=== PATIENT | male | born 1990 | race Caucasian/White ===

== ENCOUNTER 2019-02-23 16:57 | Inpatient (IN) | payer MEDICAID ==
[2019-02-23] MEDS ORDERED: NS 1,000 ML IV ONE (18:08)
--- NOTE | 2019-02-23 18:16 | EDPHY ---
H & P Time Seen by Provider: 02/23/19 17:48 HPI/ROS: HPI Right lower extremity swelling and redness. 28-year-old immunocompetent male on foot. He is currently homeless. He presents to the emergency department with complaint of worsening pain, swelling and redness to his right leg onset noticed about 3 days ago. He also states that he has some redness and swelling to his left leg but not as severe. No history of trauma. He is not diabetic. ROS: Constitutional: No fever, no chills. No weakness. Eyes: No discharge. No changes in vision. ENT: No sore throat. No nasal congestion or rhinorrhea. Respiratory: No cough. No shortness of breath. Cardiac: No chest pain, no palpitations. Gastrointestinal: No abdominal pain, no vomiting, no diarrhea. Genitourinary: No hematuria. No dysuria or increased frequency with urination. Musculoskeletal: No back pain. No neck pain. No myalgias or arthralgias. Skin: As above. Neurological: No headache. No focal weakness or altered sensation. Past medical history: Facial fractures. Social history: Nonsmoker. Denies alcohol. He is homeless. Physical Exam: General Appearance: Alert, no distress. This patient is responding to questions appropriately and in full sentences. This patient appears well- hydrated and well-nourished. Eyes: Pupils equal and round no pallor or injection. No lid edema, erythema or injection. Respiratory: There are no retractions, lungs are clear to auscultation with good air movement bilaterally. Cardiovascular: Regular rate and rhythm. No murmur. Gastrointestinal: Abdomen is soft and nontender, no masses, bowel sounds normal. No focal tenderness at McBurney's point. No Patrick sign. Neurological: Motor sensory function is grossly intact. Cranial nerves are normal. Gait is normal. Skin: Warm and dry, no rashes. Musculoskeletal: Neck is supple and nontender. Examination of the right lower extremity significant for diffuse erythema with edema involving the foot, ankle and tracking up through the proximal leg. He has some scabbed over pock solis distributed over the lateral mid aspect of the right leg. This probably service the nidus for infection. Erythema is circumferential. Edema is circumferential. His muscle compartments are soft. The right lower extremity is neurovascularly intact. Examination of the left lower extremity involves some patchy erythema involving the ankle, the dorsum of the foot and the distal leg. There is some diffuse edema involving the foot , ankle and distal leg. Not as extensive as the right lower extremity. The left lower extremity is neurovascularly intact. Psychiatric: No agitation. No depression. Database: EKG: Imaging: Right lower extremity venous Doppler ultrasound: Negative for DVT or other pathology. Results were discussed with staff radiologist Dr. Gerard Gallo. Procedures: Emergency department course: Triage vital signs reviewed and are normal. Patient is afebrile. IV will be placed. Blood cultures to be obtained. He will be started on IV normal saline with 500 cc to be given over the next hour. After blood cultures have been drawn, the patient will be started on IV vancomycin in the emergency department for treatment of cellulitis. Plan for admission for day or 2 discussed with him. He endorses. 6:25 p.m., spoke with on-call hospitalist Dr. Morrell. Case discussed in detail with her. She accepts this patient for admission to the hospitalist service. The patient's remaining emergency department course under my care has been uneventful. The patient was admitted in stable condition to the hospitalist service. Differential Diagnosis: The differential diagnosis on this patient includes but is not limited to lower extremity cellulitis. DVT unlikely. This represents a partial list of diagnoses considered. These considerations are based on history, physical exam , past history, reassessment and diagnostic testing. Smoking Status: Light smoker Constitutional: Initial Vital Signs Temperature (C) 36.9 C 02/23/19 17:00 Heart Rate 92 02/23/19 17:00 Respiratory Rate 16 02/23/19 17:00 Blood Pressure 120/66 02/23/19 17:00 O2 Sat (%) 95 02/23/19 17:00 O2 Delivery Mode Room Air Allergies/Adverse Reactions: No Known Allergies Allergy (Verified 11/20/15 17:01) Home Medications: Medication Instructions Recorded NK [No Known Home Meds] 11/20/15 Medical Decision Making - Data Points Laboratory Results: Laboratory Results 02/23/19 18:14 02/23/19 18:14 02/23/19 02/23/19 18:14 18:14 WBC 7.17 10^3/uL 10^3/uL (3.80-9.50) RBC 4.18 10^6/uL L 10^6/uL (4.40-6.38) Hgb 12.7 g/dL L g/dL (13.7-17.5) Hct 37.3 % L % (40.0-51.0) MCV 89.2 fL fL (81.5-99.8) MCH 30.4 pg pg (27.9-34.1) MCHC 34.0 g/dL g/dL (32.4-36.7) RDW 12.5 % % (11.5-15.2) Plt Count 325 10^3/uL 10^3/uL (150-400) MPV 8.8 fL fL (8.7-11.7) Neut % (Auto) 70.2 % % (39.3-74.2) Lymph % (Auto) 16.0 % % (15.0-45.0) [place] % (Auto) 9.5 % % (4.5-13.0) Eos % (Auto) 2.5 % % (0.6-7.6) Baso % (Auto) 0.7 % % (0.3-1.7) Nucleat RBC Rel Count 0.0 % % (0.0-0.2) Absolute Neuts (auto) 5.03 10^3/uL 10^3/uL (1.70-6.50) Absolute Lymphs (auto) 1.15 10^3/uL 10^3/uL (1.00-3.00) Absolute Monos (auto) 0.68 10^3/uL 10^3/uL (0.30-0.80) Absolute Eos (auto) 0.18 10^3/uL 10^3/uL (0.03-0.40) Absolute Basos (auto) 0.05 10^3/uL 10^3/uL (0.02-0.10) Absolute Nucleated RBC 0.00 10^3/uL 10^3/uL (0-0.01) Immature Gran % 1.1 % % (0.0-1.1) Immature Gran # 0.08 10^3/uL 10^3/uL (0.00-0.10) Sodium 138 mEq/L mEq/L (135-145) Potassium 4.4 mEq/L mEq/L (3.5-5.2) Chloride 102 mEq/L mEq/L (97-110) Carbon Dioxide 28 mEq/l mEq/l (22-31) Anion Gap 8 mEq/L mEq/L (6-14) BUN 14 mg/dL mg/dL (7-23) Creatinine 0.8 mg/dL mg/dL (0.7-1.3) Estimated GFR > 60 Glucose 93 mg/dL mg/dL (70-100) Calcium 9.0 mg/dL mg/dL (8.5-10.4) Departure - Departure Disposition: [facility] Inpatient Acute Clinical Impression: Cellulitis of right lower extremity
[2019-02-23] MEDS ORDERED: VANCOMYCIN 1.5 GM in D5W 250 ML IV ONE (18:21)
[2019-02-23 18:36] LABS: PLATELET COUNT 325 10^3/uL (150-400)
[2019-02-23] MEDS ORDERED: diphenhydrAMINE 25 MG CAP PO PRN (19:38)
[2019-02-23] MEDS ORDERED: ONDANSETRON DISINTEGRATING 4 MG TAB PO PRN (19:38)
[2019-02-23] MEDS ORDERED: ONDANSETRON 4 MG/2 ML VIAL IVP PRN (19:38)
[2019-02-23] MEDS ORDERED: NS 1,000 ML IV SCH (19:45)
[2019-02-23] MEDS ORDERED: KETOROLAC 30 MG/1 ML SDV IVP ONE (19:58)
--- NOTE | 2019-02-23 20:05 | PDGENHP ---
History and Physical - Chief Complaint Right greater than left leg pain and swelling - History of Present Illness Source-patient provides history is a fair historian he is sleeping when I enter the room and tries to go back to sleep. EMR was reviewed and case discussed with ED provider. HPI - 28-year-old homeless gentleman with the no significant past medical history who presents emergency department today with complaints of worsening leg pain swelling and redness. Patient reports his right leg is more swollen than the left. He has been experiencing fevers, chills, sweats. He reports nausea, vomiting without any diarrhea. Patient is homeless. He reports he has some cuts on his legs and has been scratching. He is unsure if he has had any insect bites. Patient reports occasional numbness tingling. He denies any history of IV drug use. Patient denies any history of cellulitis or abscess the past. History Information - Allergies/Home Medication List Allergies/Adverse Reactions: No Known Allergies Allergy (Verified 11/20/15 17:01) Home Medications: NK [No Known Home Meds] 11/20/15 [Last Taken Unknown] I have personally reviewed and updated: family history, medical history, social history, surgical history - Past Medical History Additional medical history: History of facial fractures, HSV. No chronic medical conditions. - Surgical History Reports: no pertinent surgical hx Additional surgical history: Denies - Family History Additional family history: Denies any dermatologic conditions in the family. - Social History Smoking Status: Light smoker Tobacco Use: Cigarettes (Patient reports he smokes quarter to half pack per day. ) Alcohol Use: Occasionally (The denies any daily alcohol consumption.) Drug Use: Marijuana (Occasional marijuana) Additional social history: Patient is homeless Review of Systems Review of Systems: ROS: 10pt was reviewed & negative except for what was stated in HPI & below Constitutional: Reports: chills, fever, malaise, other (Sweats) EENMT: Reports: no symptoms Cardiac: Reports: no symptoms Respiratory: Reports: no symptoms Gastrointestinal: Reports: vomitting, nausea. Denies: abdominal pain, diarrhea Genitourinary: Reports: no symptoms Muscolosketal: Reports: other (The bilateral lower legs see HPI) Skin: Reports: other (Bilateral lower leg see HPI) Neurological: Reports: numbness (Occasional in both legs.), tingling ( Occasional tingling in his legs.) Hematologic/Lymphatic: Reports: no symptoms Physical Exam Physical Exam: Selected Entries 02/23/19 17:00 Heart Rate 92 Respiratory 16 Rate O2 Sat (%) 95 Temperature (C) 36.9 C Blood Pressure 120/66 Mean Arterial 84 Pressure (MAP) O2 Delivery Room Air Mode Temperature Oral Source Temp Pulse Resp BP Pulse Ox 36.9 C 84 16 129/94 H 97 02/23/19 17:00 02/23/19 19:18 02/23/19 19:18 02/23/19 19:18 02/23/19 19:18 Constitutional: no apparent distress, other (NAD. Patient is lying in bed asleep.) Eyes: PERRL (Slightly decreased reactivity light bilaterally but symmetric.), anicteric sclera, EOMI, No scleral injection Ears, Nose, Mouth, Throat: poor dentition (Dentition in fair condition.), dry mucous membranes, other Cardiovascular: regular rate and rhythym, no murmur, rub, or gallop, pulses symmetric bilaterally, edema (Bilateral lower extremities right greater than left.) Peripheral Pulses: 2+: dorsalis-pedis (R), dorsalis-pedis (L) Respiratory: no respiratory distress, no rales or rhonchi, clear to auscultation , No inspiratory crackles Gastrointestinal: normoactive bowel sounds, soft, non-tender abdomen, no palpable masses, No distension Genitourinary: no bladder tenderness, No de la o in urethra Skin: warm, abrasion, erythema, induration, other (Patient with multiple scabbed small lesions on the right middle leg. All round circular and symmetric. Questionable bite solis), No fluctuance Psychiatric: interacting appropriately, not encephalopathic, thought process linear, flat affect, other (Patient is cooperative with prompting. Otherwise she rolled over tries to go back to sleep) Lab Data & Imaging Review 02/23/19 18:14 02/23/19 18:14 WBC 7.17 10^3/uL (3.80-9.50) 02/23/19 18:14 RBC 4.18 10^6/uL (4.40-6.38) L 02/23/19 18:14 Hgb 12.7 g/dL (13.7-17.5) L 02/23/19 18:14 Hct 37.3 % (40.0-51.0) L 02/23/19 18:14 MCV 89.2 fL (81.5-99.8) 02/23/19 18:14 MCH 30.4 pg (27.9-34.1) 02/23/19 18:14 MCHC 34.0 g/dL (32.4-36.7) 02/23/19 18:14 RDW 12.5 % (11.5-15.2) 02/23/19 18:14 Plt Count 325 10^3/uL (150-400) 02/23/19 18:14 MPV 8.8 fL (8.7-11.7) 02/23/19 18:14 Neut % (Auto) 70.2 % (39.3-74.2) 02/23/19 18:14 Lymph % (Auto) 16.0 % (15.0-45.0) 02/23/19 18:14 [place] % (Auto) 9.5 % (4.5-13.0) 02/23/19 18:14 Eos % (Auto) 2.5 % (0.6-7.6) 02/23/19 18:14 Baso % (Auto) 0.7 % (0.3-1.7) 02/23/19 18:14 Nucleat RBC Rel Count 0.0 % (0.0-0.2) 02/23/19 18:14 Absolute Neuts (auto) 5.03 10^3/uL (1.70-6.50) 02/23/19 18:14 Absolute Lymphs (auto) 1.15 10^3/uL (1.00-3.00) 02/23/19 18:14 Absolute Monos (auto) 0.68 10^3/uL (0.30-0.80) 02/23/19 18:14 Absolute Eos (auto) 0.18 10^3/uL (0.03-0.40) 02/23/19 18:14 Absolute Basos (auto) 0.05 10^3/uL (0.02-0.10) 02/23/19 18:14 Absolute Nucleated RBC 0.00 10^3/uL (0-0.01) 02/23/19 18:14 Immature Gran % 1.1 % (0.0-1.1) 02/23/19 18:14 Immature Gran # 0.08 10^3/uL (0.00-0.10) 02/23/19 18:14 Sodium 138 mEq/L (135-145) 02/23/19 18:14 Potassium 4.4 mEq/L (3.5-5.2) 02/23/19 18:14 Chloride 102 mEq/L (97-110) 02/23/19 18:14 Carbon Dioxide 28 mEq/l (22-31) 02/23/19 18:14 Anion Gap 8 mEq/L (6-14) 02/23/19 18:14 BUN 14 mg/dL (7-23) 02/23/19 18:14 Creatinine 0.8 mg/dL (0.7-1.3) 02/23/19 18:14 Estimated GFR > 60 02/23/19 18:14 Glucose 93 mg/dL (70-100) 02/23/19 18:14 Calcium 9.0 mg/dL (8.5-10.4) 02/23/19 18:14 Imaging Review: Ultrasound and Venous Duplex Doppler Study with Color and Spectral Analysis of the Right Lower Extremity Clinical History: 28-year-old male with right calf erythema and edema for 3 days. Rule out DVT. Technique: A high frequency transducer was used for imaging and Doppler study of the veins of the right lower extremity. Pulsed Doppler and color Doppler were utilized, along with various maneuvers to assess flow in the veins. Cursory evaluation of the contralateral common femoral vein was obtained for comparison purposes. Comparison Study: None. Findings: The deep veins of the right lower extremity are normally compressible between the groin and the upper calf, and have normal Doppler waveforms. There is no sonographic evidence of deep venous thrombosis. The greater saphenous vein is compressible. The popliteal fossa is unremarkable. There is some edema in the calf. Impression: There is no sonographic evidence of deep or superficial vein thrombosis in the right lower extremity. Findings were discussed with Sebastian Plummer MD at 18:58, on 02/23/2019. Dictated By: Matthias Gallo MD Assessment & Plan Assessment: 28-year-old homeless gentleman with the no significant past medical history who presents emergency department today with complaints of worsening leg pain swelling and redness. Cellulitis of right lower extremity (Acute) - patient with bilateral lower extremity swelling right greater than left. Patient will be started on vancomycin. Blood cultures have been obtained. Does not meet SIRS criteria. Right lower extremity Doppler negative for DVT. Elevate extremities. Tylenol and Toradol p.r.n. For pain. Patient was requesting Vicodin but he is resting comfortably. Advised no narcotics at this time. Anemia - no evidence of active bleeding. Patient is homeless suspect iron deficiency component. Patient does not require immediate anemia workup at this time. Social work consultation and referral to a primary care provider. Tobacco dependence - nicotine patch p.r.n.. FEN - IV fluids overnight for 1 L. Electrolyte monitoring replacement if needed. Diet as tolerated. PPX-Lovenox. Holding SCDs due to bilateral lower extremity involvement. Cor status-full Disposition-patient admitted observation status on the [facility] floor pending re-evaluation in the morning. Consider transition to oral antibiotics if patient with noted improvement in his symptoms.
[2019-02-23] MEDS: NICOTINE 14 MG/24 HR PATCH TD SCH (22:08)
[2019-02-23] MEDS: ACETAMINOPHEN 325 MG TAB PO PRN (22:09)
[2019-02-24] MEDS ORDERED: KETOROLAC 15 MG/1 ML SDV IVP PRN (03:00)
[2019-02-24 05:27] LABS: PLATELET COUNT 290 10^3/uL (150-400)
[2019-02-24] MEDS ORDERED: VANCOMYCIN 1.5 GM in NS 250 ML IV SCH (09:00)
[2019-02-24] MEDS: ACETAMINOPHEN 325 MG TAB PO PRN (09:30)
--- NOTE | 2019-02-24 10:35 | ASMTCMCOM ---
CM Note CM Note Notes: Pti s a 28 y/o man admitted for cellulitis right lower extremity. Pt will most likely d/c independent when medically stable. Pt is currently on ivabx but may be switched. Referral made to [facility]. CM available for changes. Plan: Independent Date Signed: 02/24/2019 10:35 AM Electronically Signed By:FIDENCIO Tong
--- NOTE | 2019-02-24 12:19 | HOSPPROG ---
Hospitalist Progress Note Assessment/Plan: 28-year-old homeless gentleman with the no significant past medical history who presents emergency department today with complaints of worsening leg pain swelling and redness. First encounter, chart reviewed. Evaluated Gregory Fam. *bilateral lower ex cellulitis -r>l -r leg pustule sent for culture -has a pustular folliculitis on the right calf area -abx changed to Cefazolin *hepatitis C *anemia *hx of drug use, says he only uses cannibals *nicotine dependence -patch ordered *hx of narcolepsy *homelessness -works doing construction work *plan: will treat him with Cefazolin, elevate his legs and see how he does. Will need another midnight stay for treatment. During much of my evaluation, Gregory has no recollection of where he is staying, but then will say he has been at the nursing home. Will ask ST to do further evaluation. Subjective: Gregory said his swelling and redness started 4 days ago. Objective: Vital Signs Temp Pulse Resp BP Pulse Ox 36.8 C 77 20 127/81 H 95 02/24/19 08:00 02/24/19 08:00 02/24/19 08:00 02/24/19 08:00 02/24/19 08:00 Laboratory Results 02/24/19 04:52 02/24/19 04:52 - Physical Exam Constitutional: unkempt Eyes: PERRL Ears, Nose, Mouth, Throat: hearing normal Cardiovascular: regular rate and rhythym Respiratory: no respiratory distress Gastrointestinal: normoactive bowel sounds Skin: warm, other (has bilateral lower ext swelling, r>l. has folliculitis on r leg area. scab behind right knee area. ) Musculoskeletal: full muscle strength Neurologic: AAOx3 Psychiatric: flat affect, poor memory ICD10 Worksheet Patient Problems: Problems Problem Status Onset Cellulitis of right lower extremity Acute
--- NOTE | 2019-02-24 13:23 | GCON ---
[f rep st] CONSULTATION INFECTIOUS DISEASE CONSULTATION DATE OF CONSULTATION: 02/24/2019 REFERRING PHYSICIAN: Cony Chandra NP REASON FOR CONSULTATION: To assist in the management of this 28-year-old male with possible lower extremity cellulitis. HISTORY OF PRESENT ILLNESS: Mr. Navarro is a 28-year-old male whose previous medical history is notable for the followin. Homelessness. 2. Tobacco use disorder. 3. Previous history of intravenous drug use, none x5 years per patient. 4. "Narcolepsy" per the patient. Regarding his present issues, the patient is a very nebulous historian. He tells me that approximately 4 days ago, he noticed that his legs were "fucked up." When I asked him what he meant by that, he told me he noticed swelling in both legs, with some redness and bumps in his right lower extremity that are red. The patient has been scratching his lower extremities as well. He denies any pets, and has been sleeping where ever he can find a place to sleep, occasionally in the [place] half-way. He was not able to provide specifics about blankets, sharing tents, or other. He has never had MRSA, and denies history of scabies. He does not know if he has had a fever. He states his last tetanus booster was a year ago when he spent time in [facility]. The patient denies any water other than the [facility] and [facility] shower. The patient presented to [facility] yesterday for redness in his lower extremities and was begun on vancomycin. Right lower extremity Doppler was negative for DVT. I am now asked to assist in his management. Again, the patient is not very talkative with me today, and with multiple questions, he answered "I do not know, I have no idea." REVIEW OF SYSTEMS: Notable for the swelling in his legs bilaterally with some erythema and folliculitis type lesions, for 4 days, otherwise 10 systems are reviewed and all are negative. PAST MEDICAL HISTORY: Previous medical history as per the above. Chronic hepatitis C: The patient states that he has chronic hepatitis C and has not sought care for this. ALLERGIES: No known drug allergies. 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 He is single. He smokes, occasional alcohol, 1 drink per day, marijuana use. 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 The patient states he was HIV tested in the past year and was negative. No pets, and he states he is not around any animals. FAMILY HISTORY: Noncontributory. PHYSICAL EXAMINATION: VITAL SIGNS: T-current 36, T-max 37, heart rate 77, blood pressure 127/81, 95% on room air. GENERAL: Disheveled male, in bed, no apparent distress. Nontoxic. HEENT: Atraumatic, normocephalic. Pupils equal , round, reactive to light. Extraocular movements are intact. No conjunctival injection. No icterus or petechiae. Mucous membranes moist, but lips are dry. No oral lesions noted. He does have a sunburn noted on his cheeks and nose with some dry and peeling skin. No supraclavicular or cervical lymphadenopathy. CARDIOVASCULAR: S1 and S2. No rubs, gallops, or murmurs. LUNGS: Clear to auscultation bilaterally with no rales, rhonchi, or wheeze. No increased respiratory effort. ABDOMEN: Soft and nontender. No evidence of organomegaly or stigmata of end-stage liver disease. EXTREMITIES: The patient has a callus lesion over the dorsum of his hand on the left side over the 5th finger that is callused and broken open. It does not look infected. His lower extremities are notable for the following: Right lower extremity is mildly swollen along with the left. There are multiple folliculitis type lesions, 1 of which is pustular that I opened and sent for Gram stain and culture on the lateral aspect of his right lower extremity. There is, again, some surrounding faint pinkish erythema that is blanching. He also has a scabbed linear lesion behind his right knee with some minimal surrounding erythema. His left lower extremity is notable for a cracked, chafed heel lesion that is callused. He does not have the follicular lesions, although he does have some faint pinkish erythema of the left lower extremity as well. He does not have any rashes or jamee lesions in the web spaces of his fingers or toes that would suggest scabies. No stigmata of endocarditis. NEUROLOGIC: He is alert and oriented x3. LABORATORY DATA: Microbiologic data: Blood cultures x2 are pending. White blood cell count of 5.5, hematocrit of 37, platelet count of 290. BUN and creatinine 18/0.7. RADIOGRAPHIC DATA: Lower extremity noninvasive on the right side, negative for clot. IMPRESSION: 28-year-old homeless male with what appears to be a mild bilateral lower extremity cellulitis from breaks in the skin and soft tissue. He also has pustular folliculitis on the right lower extremity, of which one was unroofed and cultured. These could be flea bites, although would expect them to be more circumferential. Suspect that his pants caused chafing and shearing of the hair follicles, with subsequent folliculitis and secondary bacterial infection from scratching. Of note, the patient denies any water exposure other than the [facility] and homeless half-way shower. Given his homelessness, he is at risk for MRSA. That said, will start with Cefazolin, leg elevation, and assess clinical response. Of note, lesions do not look vasculitic in nature, something he is at risk for in the setting of chronic hepatitis-C. PLAN: 1. The patient needs leg elevation of both lower extremities. 2. Instructed the patient to take a thorough shower with soap and water. 3. Discontinue vancomycin. Start cefazolin 2 g IV q.8 hours. Suspect he will need only a brief course of this, such as 1 or 2 days then, can transition to oral therapy. 4. Check hepatitis a total antibody to ensure he is immune to this disease given present outbreak among the homelessness and his concomitant underlying chronic hepatitis C. 5. HIV antibody test for completeness. 6. Tdap is up to date. Thank you very much for consulting Infectious Diseases. We will continue to follow this patient with you. /[id number]/MODL MTDD
[2019-02-24] MEDS: ceFAZolin 2 GM/DEXTROSE 100 ML IV SCH ×3 (13:53→21:47)
--- NOTE | 2019-02-24 17:06 | PDMN ---
Medical Necessity Medical necessity: [facility] M70 Cellulitis, A-2 days: 28 yo homeless pt w/ RLE swelling and redness. Eval reveals acute RLE cellulitis w/ pustular folliculitis. Initially OBS for workup/tx but requires additional [place] post ID consultation, change in IV antibx, ongoing parenteral antibx needed. Bld and wound cx pending. Hep A and HIV lab work pending. Hx Hep C, previous IV drug user. Change to IP status 02/24/19@1552 per EMBEDDED PROCESSOR order.
[2019-02-24] MEDS: NICOTINE 14 MG/24 HR PATCH TD SCH (21:47)
[2019-02-25 02:55] LABS: HEPATITIS A ANTIBODY TOTAL NEGATIVE (NEGATIVE); HIV TYPE 1 AND 2 NEGATIVE (NEGATIVE)
[2019-02-25] MEDS: ceFAZolin 2 GM/DEXTROSE 100 ML IV SCH ×3 (05:15→21:38)
[2019-02-25] MEDS: ACETAMINOPHEN 325 MG TAB PO PRN (10:38)
--- NOTE | 2019-02-25 13:39 | HOSPPROG ---
Hospitalist Progress Note Assessment/Plan: 28-year-old homeless gentleman with the no significant past medical history who presents emergency department today with complaints of worsening leg pain swelling and redness. First encounter, chart reviewed. Evaluated Gregory Fam. *bilateral lower ex cellulitis -r>l -r leg pustule sent for culture -has a pustular folliculitis on the right calf area -abx changed to Cefazolin -D/W Dr Go *hepatitis C -chronic *anemia -stable *hx of drug use, says he only uses Cannibis -denies withdrawl *nicotine dependence -patch *hx of narcolepsy -per pt *homelessness -works doing construction work *plan: will treat him with Cefazolin, elevate his legs and see how he does. Will need another midnight stay for treatment. Likely DC in am on PO abx Subjective: Feeling better. No specific issues. Objective: Vital Signs Temp Pulse Resp BP Pulse Ox 37.1 C 69 16 140/72 H 95 02/25/19 11:38 02/25/19 11:38 02/25/19 11:38 02/25/19 11:38 02/25/19 11:38 - Physical Exam Constitutional: appears nourished, not in pain, chronically ill appearing Eyes: PERRL, anicteric sclera, EOMI Ears, Nose, Mouth, Throat: moist mucous membranes, hearing normal, ears appear normal Cardiovascular: No JVD, No tachycardia, No edema Respiratory: no respiratory distress, no rales or rhonchi, reduced air movement Gastrointestinal: normoactive bowel sounds, No tenderness, No ascites Skin: warm, abrasion, erythema Musculoskeletal: normal joint ROM, no joint effusions, generalized weakness Neurologic: AAOx3 Psychiatric: not anxious, not encephalopathic, poor insight, poor judgement ICD10 Worksheet Patient Problems: Problems Problem Status Onset Cellulitis of right lower extremity Acute
--- NOTE | 2019-02-25 14:36 | PCMIDPN ---
Assessment/Plan: Assessment: Right calf folliculitis with surrounding cellulitis. Appears to be improving on empiric cefazolin. Agree with Dr. Fam's consultation that we will likely switch to oral antibiotics tomorrow if improvement continues. Plan: 1. Continue IV cefazolin. 2. Follow appearance of right calf. 02/25/19 14:34 Subjective: Patient is laying in his hospital bed. Numerous complaints of pain and other issues. Objective: Cefazolin # 2 Vital Signs Temp Pulse Resp BP Pulse Ox 37.1 C 69 16 140/72 H 95 02/25/19 11:38 02/25/19 11:38 02/25/19 11:38 02/25/19 11:38 02/25/19 11:38 - Physical Exam General Appearance: WD/WN, alert, no apparent distress, non-toxic Extremities: pedal edema, swelling, erythema, No non-tender, No normal inspection Skin: normal color, warm/dry, No rash Neuro/Psych: alert, normal mood/affect, oriented x 3 ICD10 Worksheet Patient Problems: Problems Problem Status Onset Cellulitis of right lower extremity Acute
[2019-02-25] MEDS: DOXYCYCLINE HYCLATE 100 MG CAP/TAB PO SCH (21:38)
[2019-02-25] MEDS: NICOTINE 14 MG/24 HR PATCH TD SCH (21:38)
[2019-02-26] MEDS: ceFAZolin 2 GM/DEXTROSE 100 ML IV SCH (05:24)
[2019-02-26 07:35] VITALS: BP 118/86
[2019-02-26] MEDS: DOXYCYCLINE HYCLATE 100 MG CAP/TAB PO SCH (09:09)
[2019-02-26] MEDS ORDERED: HEPATITIS A VIRUS VACCINE 1,440 UNIT/ML SYRINGE IM ONE (09:48)
--- NOTE | 2019-02-26 09:53 | PCMIDPN ---
Assessment/Plan: 1. Right greater than left lower extremity cellulitis with concomitant folliculitis secondary to MRSA: Much better overall with essentially no therapy. Swelling in his lower extremities has resolved, and erythema is barely visible. Folliculitis type lesions have flattened down. Will change antibiotics to doxycycline hyclate 100 mg p.o. Twice daily for 5 more days. Warned him of pill esophagitis and photosensitivity with this antibiotic, particularly as he already has a sunburn. Patient expressed understanding, and told me he would follow up with Wade Callejas. 2. Miscellaneous: Hepatitis a vaccine #1 given today, and this was explained to the patient. Subjective: Feels much better. Pustular lesion right lower extremity grew MRSA. Objective: Ancef 2 g IV q.8 hours No fevers Vital Signs Temp Pulse Resp BP Pulse Ox 36.7 C 79 16 118/86 H 95 02/26/19 07:34 02/26/19 07:34 02/26/19 07:34 02/26/19 07:34 02/26/19 07:34 02/25/19 02/26/19 02/27/19 05:59 05:59 05:59 Intake Total 1400 Balance 1400 Cultures negative Pustule with 3+ MRSA - Physical Exam General Appearance: alert, no apparent distress, other (Sun burn face) Extremities: other (Right lower extremity pustular lesions are much better, and flattening down. Minimal pinkish erythema on his lower extremities bilaterally. Edema has completely resolved.) ICD10 Worksheet Patient Problems: Problems Problem Status Onset Cellulitis of right lower extremity Acute
--- NOTE | 2019-02-26 10:13 | ASMTLACE ---
JANEE Length of stay for Answers: 2 days current admission Acuity / Level of Answers: Yes Care: Did the patient have an inpatient admission? Comorbidities - select Answers: Other Notes: cellulitis of right low er all that apply extremity # of Emergency department Answers: 1-2 visits in the last 6 months Social determinants Answers: Homelessness (street, [facility]) Lack of community resources and/or lack of social support (no pcp, lives alone, transportation, bob d) Score: 14 Date Signed: 02/26/2019 10:12 AM Electronically Signed By:Birdie Manley LCSW
--- NOTE | 2019-02-26 14:11 | GDS ---
[f rep st] DISCHARGE SUMMARY DISCHARGE DIAGNOSES: 1. Bilateral lower extremity cellulitis. 2. Methicillin resistant staphylococcus aureus. 3. Folliculitis. CONSULTATIONS: Infectious Disease. STUDIES AND PROCEDURES DONE: 1. Wound culture. 2. Doppler study. PHYSICAL EXAM: GENERAL: The patient is alert. VITAL SIGNS: Afebrile at 36.7, pulse 79, respirator y rate is 16. Blood pressure is 118/86. He is saturating 95% on room air. I have seen and evaluated the patient on the day of discharge. HOSPITAL COURSE: The patient is a 28-year-old male who presented to the emergency room with complain ts of right leg pain. He was evaluated and diagnosed with: 1. Bilateral lower extremity cellulitis with folliculitis. During this hospitalization, he received IV antibiotic therapy. His condition has significantly improved. Wound culture was done and noted to be positive for MRSA. He is being discharged on doxycycline 100 mg p.o. twice daily for 5 more da ys. He has no other specific complaints. 2. Homeless. The patient has been provided any resources possible. 3. Disposition. He will be discharged independently. I have discussed the patient's disposition wi th Dr. Zenobia Fam who is in agreement with this plan. FOLLOWUP: Followup will be at [facility] as the medical case manager has arranged this for him, or Saulo Weaver. TIME SPENT: I spent greater than 35 minutes in the care, coordination, and management of the patient 's disposition. DISCHARGE MEDICATIONS: Please refer to EMR form. Prescription for doxycycline has been provided for the patient prior to . /[id number]/MODL
== END 2019-02-26 11:45 | disposition home or self-care (01) | DRG 383 ==
LOC: EDUNIT# → F3E 21:10 → OBSVTOIN 02-24 15:52
PROVIDERS: ADMIT Family Medicine; ATTEND Internal Medicine
DX: L03.115 Cellulitis of right lower limb (principal); L03.116 Cellulitis of left lower limb; L73.9 Follicular disorder, unspecified; B95.62 Methicillin resistant Staphylococcus aureus infection as the cause of diseases classified elsewhere; F17.210 Nicotine dependence, cigarettes, uncomplicated; B18.2 Chronic viral hepatitis C; Z23 Encounter for immunization; Z59.0 Homelessness
CPT/HCPCS: 86708-90; 96365; G0378; J0690; J1885; J3370